=== PATIENT | female | born 1990 | race Caucasian/White ===

== ENCOUNTER 2022-11-25 06:49 | Day surgery (SDC) | payer MEDICAID, SELFPAY ==
[2022-11-20 17:09] LABS: Hematocrit 40.4 % (37-47); Hemoglobin 13.5 g/dL (12.0-15.0); Mean Corp Hgb Conc 33.4 g/dL (32-36); Mean Corpuscular Hgb 32.6 pg (27.0-32.0); Mean Corpuscular Volume 97.6 fL (81-99); Mean Platelet Vol. 11.5 fl (6.2-12.0); Platelet Count 234 K/mm3 (150-450); RBC Distribution Width CV 12.8 % (11.6-14.6); Red Blood Count 4.14 M/mm3 (4.2-5.4); White Blood Count 8.5 K/mm3 (4.4-11.0)
[2022-11-25] VITALS (7 sets, daily range): BP systolic 86–100; BP diastolic 50–69; PULSE 60–84; RESP 14–20; TEMP 36.6–37.2; O2SAT 14–100; BMI 17.3
[2022-11-25 07:33] LABS: Internal QC Validated? YES +Cl - CLEAR BKGD; Pregnancy, Urine Negative Negative
[2022-11-25] MEDS: Lactated Ringers 1,000 ML 15 ML IV (07:55)
--- NOTE | 2022-11-25 08:17 | HP.PCM.OB_ITS ---
History and Physical Date of Admission: 11/25/22 Chief complaint: Pelvic pain History present illness: 32-year-old arrives with pelvic pain scheduled for diagnostic laparoscopy left salpingo-oophorectomy. No medical changes since last seen. All questions answered and consent signed. Past medical history: Migraines, anxiety depression Medications: Nurtec, trazodone, Qulipta Allergies: Sulfa Past surgical history: Vaginal hysterectomy with right salpingo-oophorectomy, tonsillectomy Family history: Denies history DVT or PE Social history: 1 pack/day smoker, denies alcohol or drug use Review of systems: Besides above pertinent positives a full review of systems was performed and found to be negative Physical exam: Vitals: Blood pressure 100/65 pulse 61 respiratory rate 16 temperature 98.9 ?F SPO2 100% on room air General: Normal-appearing no acute distress HEENT: Normocephalic/atraumatic no cervical lymphadenopathy Cardiac/respiratory: No use of accessory muscles, nonlabored breathing Abdomen: Soft, nontender, nondistended Extremities: No peripheral edema normal peripheral pulses Psych: Normal affect, demeanor nonpressured speech Labs: Urine test negative Assessment plan: 32-year-old with pelvic pain elects for diagnostic laparoscopy left salpingo- oophorectomy. Patient understands risk of the procedure include but are not limited to visceral or vascular injury, prolonged hospitalization, blood loss and need for transfusion, reoperation. Patient state understanding wish to proceed. All questions were answered and consent was signed.
[2022-11-25 08:40] LABS: International Normalized Ratio 1.1; Partial Thromboplast Time 32.6 Seconds (24.1-36.2); Prothrombin Time (Protime)PT. 13.8 SECONDS (11.7-14.9)
--- NOTE | 2022-11-25 08:40 | OV_PTH ---
PATIENT: KATHE KEBEDE LOC: [facility] [place] U#:[id number] AGE/SX: 32/F ROOM: RE11/25/[address]: Dr. Jose Wetzel MD : 1990 BED: DIS: 11/25/2022 SPEC #: [id number] RECD: 11/25/22 12:01 STATUS: AGUILA IMER #: [id number] CYNDI: 11/25/22 08:[address]: Jose Wetzel DEPT: SURGICAL PATHOLOGY RECD BY: Shamika Truong ENTERED: 11/25/22 13:26 SP TYPE: OVARY OTHR DR: Samara Dumont, RINKU-Consuelo Tissues: Left ovary Procedures: Surgery Specimen Level IV HEADER OPERATION: Diagnostic laparoscopy, salpingo-oophorectomy PRE-OP DIAGNOSIS: Pelvic pain TISSUE SUBMITTED: Left fallopian tube and ovary MICROSCOPIC DIAGNOSIS Left fallopian tube and ovary, salpingo-oophorectomy: Fallopian tube - no pathologic diagnosis. Ovary ? multiple hemorrhagic follicular and corpus luteal cysts, largest measuring 2 cm in greatest dimension. 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 Left paratubal cyst. SJ:rg 11/27/2022 COMMENT Case has been reviewed in consultation with Dr. Castillo who concurs with the above diagnosis. IDC:AM MICROSCOPIC DESCRIPTION Slides are reviewed. GROSS DESCRIPTION Received in fixative is one container labeled with the patient's name and designated left fallopian tube and ovary. The specimen consists of a fallopian tube and ovary. The fallopian tube measures 3.8 cm in length and 0.5 cm in diameter. The fimbrial end is identified. A paratubal cyst is also noted measuring 1.5 cm in greatest dimension. The cyst is filled with clear fluid. Sections reveal unremarkable cut surfaces. Also present in the container is a detached segment of fallopian tube measuring 1.5 cm in length and 0.5 cm in diameter. Sections also reveal unremarkable cut surfaces. Also present in the container is an ovary measuring 5 x 3.5 x 2 cm and weighing 20 gm. A hurd, solid nodule is noted on the surface measuring 0.7 x 0.7 x 0.3 cm. No papillation is identified. A focal area of pinkish area is also noted on the surface may represent a ruptured hemorrhagic cyst. Sections also reveal multiple hemorrhagic cysts, largest measuring 2 cm in greatest dimension. Agricultural Services Director sections are submitted in five cassettes as follows: 1 ? fallopian tube and paratubal cyst, 2-5 ? ovary. Cassette 2 contains the solid nodule at the surface and also area of ruptured hemorrhagic cyst on the surface. / LILIA:marry 11/25/2022 More sections are submitted as follows: 6-9 ? ovary. / LILIA:marry 11/26/2022 TC:5 CPT: 47262
--- NOTE | 2022-11-25 10:08 | DCINST_ITS ---
Discharge Instructions Diet Discharge Diet: No restrictions Activity Discharge Activity: Return to Normal Activity, May Drive, May Shower and - (No tub baths for 2 weeks) May resume sexual activity in: 4-6 weeks Lifting Restrictions: No lifting over 25 pounds for 2 to 3 weeks Dressing / Incision Call your doctor if your incision/area has: Continuous Slow Oozing and Foul Smelling Discharge Call your doctor if you observe: Fever of 101 or Higher, Shortness of breath and Chest pain Follow Up Care Please Follow Up With: Jose Wetzel MD When: 2 weeks postoperatively Test Results: Test results from this visit will be discussed in further detail at your follow- up appointment, if applicable. Discharge Plan Admission Attending Provider: Jose Wetzel Primary Care Provider: Samara Dumont NP Discharge Orders/Prescriptions Prescriptions: No Action trazodone 50 mg Tablet 50 mg PO QHS Laxative 65-100 mg Tablet 1 tab PO PRN PRN (Reason: Constipation) Nurtec ODT 75 mg Tablet,Disintegrating 75 mg PO QODAY PRN (Reason: Migraine Headache) Referrals / Follow Up: Samara Dumont NP, TRAINING DEVELOPMENT DIRECTOR-C [Primary Care Provider] - Disposition Disposition (needs filled in before D/C Order can be placed): Home, Self Care
--- NOTE | 2022-11-25 10:09 | OP.PCM_ITS ---
Report of Operation Date of Procedure: 11/25/22 Pre-Operative Diagnosis: Pelvic pain Post-Operative Diagnosis: Pelvic pain Surgery/Procedure Performed:: Diagnostic laparoscopy, left salpingo-oophorectomy Description of Surgical Findings:: Surgeon: Jose Wetzel MD Anesthesia: General EBL: 50 cc Urine output: 200 cc IV fluids: 800 cc Complications: None Specimen: Left loping tube and left ovary Findings: Moderate amount of pelvic adhesions. Left loping tube and ovary with moderate amounts of pelvic sidewall adhesions along with small amount of left colonic adhesions. Left ureter visualized and dissected out of the operative field. Right lower quadrant with bowel anterior abdominal wall adhesion, attempted lysis of adhesion but with small bowel severely adhesed that cannot be safely dissected. Consent: Patient with pelvic pain elects for diagnostic laparoscopy and left salpingo- oophorectomy. Patient understands the risk of the procedure include but are not limited to visceral or vascular injury, prolonged hospitalization, blood loss and need for transfusion, reoperation. Patient state understanding wish to proceed. All questions were answered and consent was signed. Procedure: Patient was brought back to the OR where general anesthesia was found to be adequate. Patient was prepared and draped in a dorsal lithotomy position with yellowfin stirrups. Varies needle was inserted at the umbilicus and water safety test was passed, abdomen was insufflated. 5 mm supraumbilical midline incision was made and 5 mm trocar was inserted under direct visualization. Laparoscope was inserted and above findings were noted. Bilateral lower quadrant 5 mm trochars were inserted under direct visualization. An atraumatic grasper and a LigaSure device the left ureter was identified and dissected out of the operative field. As noted above left lower quadrant colonic adhesions to ovary and fallopian tube noted and dissected. Left pelvic sidewall ovarian tubal adhesions dissected. Fallopian tube and ovary now free of adhesions. Using a LigaSure device the IP ligament was cut and cauterized. Left loping tube was elevated and identified out to the fimbria a mesosalpinx was cut and cauterized. Good hemostasis was noted. Using a LigaSure device and laparoscopic scissors right lower quadrant anterior abdominal wall and bowel adhesion attempted to dissect but as noted above with severe adhesions could not safely lyse adhesion. Good hemostasis was noted. Supraumbilical 5 mm trocar was removed and incision was made for 10 mm trocar which was inserted under direct visualization. Endo Catch bag was inserted and left loping tube along with left ovary was inserted in Endo Catch bag and left fallopian tube and ovary were removed from the abdominal cavity. Henna was placed over dissection and left lower pelvis along with anterior abdominal wall dissection. Good hemostasis was noted. Abdomen was desufflated and trochars were removed under direct visualization. Good hemostasis was noted. Supraumbilical 10 mm trocar site fascia was closed with Vicryl suture in a continuous running fashion. Skin was closed in all trocar sites in a subcutaneous fashion. All counts were correct x2. Patient tolerated procedure well and was brought to recovery in stable condition.
[2022-11-25] MEDS: Acetaminophen 500 MG Tablet 1000 MG PO (11:12)
[2022-11-25] MEDS: oxyCODONE 5 MG Tablet PO (11:13)
[2022-11-25] MEDS: Lactated Ringers 1,000 ML 120 ML IV (11:26)
== END 2022-11-25 12:44 | disposition home or self-care (01) ==
LOC: SDC 06:52 → AC 06:53
PROVIDERS: Anesthesiology; PCP Nurse Practitioner Family; Referring Provider Obstetrics & Gynecology; Visit Provider Obstetrics & Gynecology
PROC: (CPT 49320; principal; 2022-11-25 08:25)
DX: R10.2 Pelvic and perineal pain (principal); F17.210 Nicotine dependence, cigarettes, uncomplicated; F41.9 Anxiety disorder, unspecified; F32.A Depression, unspecified; K59.09 Other constipation; Z90.711 Acquired absence of uterus with remaining cervical stump; Z90.89 Acquired absence of other organs; N83.8 Other noninflammatory disorders of ovary, fallopian tube and broad ligament; N83.12 Corpus luteum cyst of left ovary
CPT/HCPCS: 49320; 58661; 00840; 36415; 81025; 85027; 85610; 85730; 86850; 86900; 86901; 88305; J7120; J2405